=== PATIENT | female | born 1960 | race Asian ===

== ENCOUNTER 2018-06-27 16:47 | Emergency (ER) | payer BC ==
[2018-06-27 17:30] LABS: Urine Blood 1+ (NEG); Urine Glucose NEGATIVE (NEG); Urine Protein NEGATIVE (NEG); Urine pH 5.5 (5.0-7.0)
[2018-06-27 17:38] LABS: Absolute Lymphocytes (CBC) 1.4 K/uL (0.7-4.9); Absolute Monocytes 0.4 K/uL (0.1-1.3); Absolute Neutrophil 7.3 K/uL (1.8-8.0); Basophils % 0.5 % (0-1.3); Eosinophils % 0.7 % (0-4.4); Hematocrit 43.1 % (36.0-45.0); Lymphocytes % 15.4 % (15.3-44.8); MPV 8.4 fL (7.6-11.3); Monocytes % 4.5 % (3.3-12.3); RBC Red Blood Cell Count 5.09 M/uL (3.86-4.86)
[2018-06-27] MEDS ORDERED: Levofloxacin500mg IV 500 MG/100 ML BAG IV ONE (17:59)
[2018-06-27] MEDS ORDERED: NA CHLORIDE 0.9% 1,000 ML ONE ×2 (17:59→18:41)
[2018-06-27] MEDS ORDERED: MORPHINE 4 MG/ML SYR ONE (17:59)
[2018-06-27] MEDS ORDERED: ONDANSETRON 4 MG/2 ML VIAL ONE (17:59)
[2018-06-27] MEDS ORDERED: KETOROLAC 30 MG/ML INJ ONE (17:59)
--- NOTE | 2018-06-27 18:14 | RAD REPORT ---
EXAM DESCRIPTION: CT - Stone Protocol - 06/27/2018 5:59 pm CLINICAL HISTORY: Flank pain. ABD PAIN COMPARISON: No comparisons TECHNIQUE: Axial images were obtained without oral or IV contrast. Lack of contrast limits solid org an and vascular assessment. The [id number] spans the entirety of the system partially obscuring uppermost abdomen and lung bases. Coronal reformatted images were obtained and reviewed. All CT scans are performed using dose optimization technique as appropriate and may include automated exposure control or mA/KV adjustment according to patient size. FINDINGS: Linear subsegmental atelectasis is present both lung bases. Imaged portions of the liver and spleen show no suspicious findings on non-contrast imaging.Cholelith iasis. The pancreas and adrenal glands are normal. No pathologic lymphadenopathy in the abdomen or pe lvis. 3 mm left UVJ stone is present with mild left hydronephrosis. Additional bilateral nephrolithiasis is present. The largest stone on the right is in the inferior pole measuring 5 mm. The largest stone on the left is in the midpole measuring 4 mm. No bowel obstruction, free air, free fluid or abscess. The appendix is not identified as a discrete s tructure, however, no secondary findings of appendicitis are identified. No significant bony abnormality. IMPRESSION: 3 mm left UVJ stone is present with mild left hydronephrosis. Additional bilateral nephrolithiasis. Cholelithiasis.
[2018-06-27 18:19] LABS: Potassium 3.8 mmol/L (3.5-5.1)
[2018-06-27 18:22] LABS: Albumin 3.9 g/dL (3.4-5.0)
--- NOTE | 2018-06-27 18:23 | ER ---
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 Transition of care: patient was not received from another setting of care. Onset of symptoms was June 27, 2018. Risk Assessment: Do you want to hurt yourself or someone else? Patient reports no desire to harm self or others. Initial Sepsis Screen: Does the patient meet any 2 criteria? No. Patient's initial sepsis screen is negative. Does the patient have a suspected source of infection? Yes: Dysuria/Frequency/Urgency/UTI. Care prior to arrival: None. 16:51 Method Of Arrival: Ambulatory 16:51 Acuity: BARNEY 3 hj Triage Assessment: 16:54 General: Appears in no apparent distress. uncomfortable, Behavior is calm, cooperative, hj appropriate for age. Pain: Complains of pain in abdomen Pain currently is 7 out of 10 on a pain scale. GI: Reports lower abdominal pain, upper abdominal pain, nausea. Historical: - Allergies: 16:54 PENICILLINS; hj - Home Meds: 16:54 metoprolol tartrate 50 mg Oral tab 1 tab once daily [Active]; lisinopril 20 mg Oral tab hj 1 tab once daily [Active]; - PMHx: 16:54 Hypertension; hj - PSHx: 16:54 tubal surgery; hj - Immunization history:: Adult Immunizations up to date. - Social history:: Smoking status: Patient/guardian denies using tobacco, Patient/guardian denies using alcohol. - Ebola Screening: : Patient negative for fever greater than or equal to 101.5 degrees Fahrenheit, and additional compatible Ebola Virus Disease symptoms Patient denies exposure to infectious person Patient denies travel to an Ebola-affected area in the 21 days before illness onset. - Family history:: not pertinent. Screenin:54 Abuse screen: Denies threats or abuse. Denies injuries from another. Nutritional hj screening: No deficits noted. Tuberculosis screening: No symptoms or risk factors identified. Fall Risk None identified. Assessment: 16:54 GI: Bowel sounds present X 4 quads. hj 18:41 Reassessment: Patient appears in no apparent distress at this time. Patient and/or ed1 family updated on plan of care and expected duration. Pain level reassessed. Patient is alert, oriented x 3, equal unlabored respirations, skin warm/dry/pink. Patient states feeling better. Patient states symptoms have improved. 21:03 Reassessment: Patient appears in no apparent distress at this time. Patient and/or ed1 family updated on plan of care and expected duration. Pain level reassessed. Patient is alert, oriented x 3, equal unlabored respirations, skin warm/dry/pink. Patient states feeling better. Patient states symptoms have improved. Vital Signs: 16:55 BP 151 / 89; Pulse 94; Resp 18; Temp 98.1(TE); Pulse Ox 98% on R/A; Weight 69.4 kg; hj Height 5 ft. 2 in. (157.48 cm); Pain 7/10; 18:41 BP 148 / 76; Pulse 83; Resp 16; Pulse Ox 100% on R/A; Pain 4/10; ed1 21:03 BP 137 / 73; Pulse 71; Resp 17; Temp 98.1(O); Pulse Ox 100% on R/A; Pain 4/10; ed1 16:55 Body Mass Index 27.98 (69.40 kg, 157.48 cm) ED Course: 16:51 Patient arrived in ED. hj 16:52 Triage completed. hj 16:54 Arm band placed on right wrist. hj 16:55 Patient has correct armband on for positive identification. Placed in gown. Bed in low hj position. Call light in reach. Side rails up X 1. 17:01 Nighat Vega LVN is Primary Nurse. ed1 17:01 Casey Ramsey MD is Attending Physician. [facility] 17:36 Missed attempt(s): 22 gauge in right antecubital area. Bleeding controlled, band aid ed1 applied, catheter tip intact. 17:58 Initial lab(s) drawn, by me, sent to lab. Inserted saline lock: 24 gauge in right iw wrist, using aseptic technique. Blood collected. 17:59 CT Stone Protocol In Process Unspecified. EDMS 18:22 Niyah Smith MD is Referral Physician. [facility] 18:41 Resting quietly. Awaiting: completion of IV fluids and antibiotics. ed1 18:41 No provider procedures requiring assistance completed. ed1 21:03 IV discontinued, intact, bleeding controlled, No redness/swelling at site. Pressure ed1 dressing applied. Administered Medications: 18:06 Drug: TORadol 30 mg Route: IVP; Site: right wrist; iw 18:38 Follow up: Response: No adverse reaction; Pain is decreased ed1 18:07 Drug: morphine 2 mg Route: IVP; Site: right wrist; iw 18:38 Follow up: Response: No adverse reaction; Pain is decreased ed1 18:07 Drug: Zofran 4 mg Route: IVP; Site: right wrist; iw 18:38 Follow up: Response: No adverse reaction ed1 18:13 Drug: NS 0.9% 1000 ml Route: IV; Rate: 1 bolus; Site: right wrist; ed1 20:41 Follow up: IV Status: Completed infusion; IV Intake: 1000ml ed1 18:13 Drug: levofloxacin 500 mg Volume: 100 ml; Route: IVPB; Infused Over: 60 mins; Site: ed1 right wrist; 20:41 Follow up: Response: No adverse reaction; IV Status: Completed infusion ed1 18:37 Drug: Flomax 0.4 mg Route: PO; ed1 20:41 Follow up: Response: No adverse reaction ed1 18:37 Drug: NS 0.9% 1000 ml Route: IV; Rate: 1 bolus; Site: right wrist; ed1 21:03 Follow up: IV Status: Completed infusion; IV Intake: 1000ml ed1 21:03 Drug: morphine 2 mg Route: IVP; Site: right wrist; ed1 21:03 Follow up: Response: No adverse reaction; Medication administered at discharge. ed1 Intake: 20:41 IV: 1000ml; Total: 1000ml. ed1 21:03 IV: 1000ml; Total: 2000ml. ed1 Outcome: 18:22 Discharge ordered by . luis 21:03 Discharged to home ambulatory, with significant other. ed1 21:03 Condition: good 21:03 Discharge instructions given to patient, significant other, Instructed on discharge instructions, follow up and referral plans. medication usage, Demonstrated understanding of instructions, follow-up care, medications, Prescriptions given X 4. 21:05 Patient left the ED. 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
--- NOTE | 2018-06-27 18:23 | EDPHYS ---
Physician Documentation [facility] Name: Mayra Austin Age: 58 yrs Sex: Female : 1960 Arrival Date: 06/27/2018 Time: 16:51 Bed 23 Private MD: LEOLA Physician Casey Ramsey HPI: 06/27 17:23 This 58 yrs old Female presents to ER via Ambulatory with complaints of Possible luis Kidney Stone. 17:23 The patient presents with abdominal pain in the left lower quadrant. Onset: The luis symptoms/episode began/occurred 1 day(s) ago. The patient complains of pain in the left low back and left mid back. The pain radiates to the left low back and left mid back. Onset: The symptoms/episode began/occurred 1 day(s) ago. Modifying factors: The symptoms are alleviated by nothing. the symptoms are aggravated by nothing. Associated signs and symptoms: The patient has no apparent associated signs or symptoms. Modifying factors: The symptoms are alleviated by nothing, the symptoms are aggravated by nothing. Historical: - Allergies: 16:54 PENICILLINS; hj - Home Meds: 16:54 metoprolol tartrate 50 mg Oral tab 1 tab once daily [Active]; lisinopril 20 mg Oral tab hj 1 tab once daily [Active]; - PMHx: 16:54 Hypertension; hj - PSHx: 16:54 tubal surgery; hj - Immunization history:: Adult Immunizations up to date. - Social history:: Smoking status: Patient/guardian denies using tobacco, Patient/guardian denies using alcohol. - Ebola Screening: : Patient negative for fever greater than or equal to 101.5 degrees Fahrenheit, and additional compatible Ebola Virus Disease symptoms Patient denies exposure to infectious person Patient denies travel to an Ebola-affected area in the 21 days before illness onset. - Family history:: not pertinent. ROS: 17:23 Constitutional: Negative for fever, chills, and weight loss, Eyes: Negative for injury, luis pain, redness, and discharge, ENT: Negative for injury, pain, and discharge, Neck: Negative for injury, pain, and swelling, Cardiovascular: Negative for chest pain, palpitations, and edema, Respiratory: Negative for shortness of breath, cough, wheezing, and pleuritic chest pain, Abdomen/GI: Negative for abdominal pain, nausea, vomiting, diarrhea, and constipation, : Negative for injury, bleeding, discharge, and swelling, MS/Extremity: Negative for injury and deformity, Skin: Negative for injury, rash, and discoloration, Neuro: Negative for headache, weakness, numbness, tingling, and seizure, Psych: Negative for depression, anxiety, suicide ideation, homicidal ideation, and hallucinations, Allergy/Immunology: Negative for hives, rash, and allergies, Endocrine: Negative for neck swelling, polydipsia, polyuria, polyphagia, and marked weight changes, Hematologic/Lymphatic: Negative for swollen nodes, abnormal bleeding, and unusual bruising. 17:23 Back: Positive for flank pain, on the left. Exam: 17:23 Constitutional: This is a well developed, well nourished patient who is awake, alert, luis and in no acute distress. Head/Face: Normocephalic, atraumatic. Eyes: Pupils equal round and reactive to light, extra-ocular motions intact. Lids and lashes normal. Conjunctiva and sclera are non-icteric and not injected. Cornea within normal limits. Periorbital areas with no swelling, redness, or edema. ENT: Nares patent. No nasal discharge, no septal abnormalities noted. Tympanic membranes are normal and external auditory canals are clear. Oropharynx with no redness, swelling, or masses, exudates, or evidence of obstruction, uvula midline. Mucous membranes moist. Neck: Trachea midline, no thyromegaly or masses palpated, and no cervical lymphadenopathy. Supple, full range of motion without nuchal rigidity, or vertebral point tenderness. No Meningismus. Chest/axilla: Normal chest wall appearance and motion. Nontender with no deformity. No lesions are appreciated. Cardiovascular: Regular rate and rhythm with a normal S1 and S2. No gallops, murmurs, or rubs. Normal PMI, no JVD. No pulse deficits. Respiratory: Lungs have equal breath sounds bilaterally, clear to auscultation and percussion. No rales, rhonchi or wheezes noted. No increased work of breathing, no retractions or nasal flaring. Female : Normal external genitalia. Skin: Warm, dry with normal turgor. Normal color with no rashes, no lesions, and no evidence of cellulitis. MS/ Extremity: Pulses equal, no cyanosis. Neurovascular intact. Full, normal range of motion. Neuro: Awake and alert, GCS 15, oriented to person, place, time, and situation. Cranial nerves II-XII grossly intact. Motor strength 5/5 in all extremities. Sensory grossly intact. Cerebellar exam normal. Normal gait. Psych: Awake, alert, with orientation to person, place and time. Behavior, mood, and affect are within normal limits. 17:23 Abdomen/GI: Inspection: abdomen appears normal, Bowel sounds: normal, Palpation: mild abdominal tenderness, moderate abdominal tenderness, in the left lower quadrant, Liver: no appreciated palpable abnormalities, Hernia: not appreciated. Vital Signs: 16:55 BP 151 / 89; Pulse 94; Resp 18; Temp 98.1(TE); Pulse Ox 98% on R/A; Weight 69.4 kg; hj Height 5 ft. 2 in. (157.48 cm); Pain 7/10; 18:41 BP 148 / 76; Pulse 83; Resp 16; Pulse Ox 100% on R/A; Pain 4/10; ed1 21:03 BP 137 / 73; Pulse 71; Resp 17; Temp 98.1(O); Pulse Ox 100% on R/A; Pain 4/10; ed1 16:55 Body Mass Index 27.98 (69.40 kg, 157.48 cm) MDM: 17:02 Patient medically screened. [facility] 17:25 Data reviewed: vital signs, nurses notes, lab test result(s), radiologic studies, CT luis scan. 06/27 17:19 Order name: Urine Dipstick--Ancillary (enter results); Complete Time: 17:56 06/27 17:23 Order name: Basic Metabolic Panel [facility] 06/27 17:23 Order name: CBC with Diff; Complete Time: 17:56 [facility] 06/27 17:23 Order name: Creatinine for Radiology [facility] 06/27 17:23 Order name: Hepatic Function [facility] 06/27 17:23 Order name: Lipase [facility] 06/27 17:23 Order name: CT Stone Protocol; Complete Time: 18:21 [facility] 06/27 17:23 Order name: IV Saline Lock; Complete Time: 18:01 [facility] 06/27 17:23 Order name: Labs collected and sent; Complete Time: 17:30 [facility] Administered Medications: 18:06 Drug: TORadol 30 mg Route: IVP; Site: right wrist; iw 18:38 Follow up: Response: No adverse reaction; Pain is decreased ed1 18:07 Drug: morphine 2 mg Route: IVP; Site: right wrist; iw 18:38 Follow up: Response: No adverse reaction; Pain is decreased ed1 18:07 Drug: Zofran 4 mg Route: IVP; Site: right wrist; iw 18:38 Follow up: Response: No adverse reaction ed1 18:13 Drug: NS 0.9% 1000 ml Route: IV; Rate: 1 bolus; Site: right wrist; ed1 20:41 Follow up: IV Status: Completed infusion; IV Intake: 1000ml ed1 18:13 Drug: levofloxacin 500 mg Volume: 100 ml; Route: IVPB; Infused Over: 60 mins; Site: ed1 right wrist; 20:41 Follow up: Response: No adverse reaction; IV Status: Completed infusion ed1 18:37 Drug: Flomax 0.4 mg Route: PO; ed1 20:41 Follow up: Response: No adverse reaction ed1 18:37 Drug: NS 0.9% 1000 ml Route: IV; Rate: 1 bolus; Site: right wrist; ed1 21:03 Follow up: IV Status: Completed infusion; IV Intake: 1000ml ed1 21:03 Drug: morphine 2 mg Route: IVP; Site: right wrist; ed1 21:03 Follow up: Response: No adverse reaction; Medication administered at discharge. ed1 Disposition: 06/27/18 18:22 Discharged to Home. Impression: Hydronephrosis with renal and ureteral calculous obstruction - 3 mm uvj, left. - Condition is Stable. - Discharge Instructions: Kidney Stones, Kidney Stones, [id number], Hydronephrosis, Dietary Guidelines to Help Prevent Kidney Stones. - Prescriptions for Tylenol- Codeine #3 300-30 mg Oral Tablet - take 2 tablet by ORAL route every 6 hours As needed; 30 tablet. Zofran 4 mg Oral Tablet - take 1 tablet by ORAL route every 12 hours As needed; 20 tablet. Flomax 0.4 mg Oral Capsule, Sust. Release 24 hr - take 1 capsule by ORAL route once daily 1/2 hour following the same meal each day; 30 capsule. Cipro 500 mg Oral Tablet - take 1 tablet by ORAL route every 12 hours for 7 days; 14 tablet. - Medication Reconciliation Form, Thank You Letter, Antibiotic Education, Prescription Opioid Use form. - Follow up: Private Physician; When: 2 - 3 days; Reason: Recheck today's complaints, Continuance of care, Re-evaluation by your physician. Follow up: Niyah Smith; When: 2 - 3 days; Reason: Recheck today's complaints, Continuance of care, Re-evaluation by your physician. - Problem is new. - Symptoms have improved. Signatures: Dispatcher [employer] EDKY Casey Ramsey MD MD cha Williams, Irene, RN RN Nighat Vega LVN TOP CUTTER ed1 Bryant Wesley RN RN Corrections: (The following items were deleted from the chart) 21:05 18:22 06/27/2018 18:22 Discharged to Home. Impression: Hydronephrosis with renal and ed1 ureteral calculous obstruction - 3 mm uvj, left. Condition is Stable. Discharge Instructions: Kidney Stones, Kidney Stones, [id number], Hydronephrosis, Dietary Guidelines to Help Prevent Kidney Stones. Prescriptions for Tylenol-Codeine #3 300-30 mg Oral Tablet - take 2 tablet by ORAL route every 6 hours As needed; 30 tablet, Zofran 4 mg Oral Tablet - take 1 tablet by ORAL route every 12 hours As needed; 20 tablet, Flomax 0.4 mg Oral Capsule, Sust. Release 24 hr - take 1 capsule by ORAL route once daily 1/2 hour following the same meal each day; 30 capsule, Cipro 500 mg Oral Tablet - take 1 tablet by ORAL route every 12 hours for 7 days; 14 tablet. and Forms are Medication Reconciliation Form, Thank You Letter, Antibiotic Education, Prescription Opioid Use. Follow up: Private Physician; When: 2 - 3 days; Reason: Recheck today's complaints, Continuance of care, Re-evaluation by your physician. Follow up: Niyah Smith; When: 2 - 3 days; Reason: Recheck today's complaints, Continuance of care, Re-evaluation by your physician. Problem is new. Symptoms have improved. luis
[2018-06-27 18:24] LABS: Bilirubin Direct 0.2 mg/dL (0-0.2)
[2018-06-27 18:26] LABS: Bilirubin Total 0.5 mg/dL (0.2-1.0); Protein, Total 8.4 g/dL (6.4-8.2)
[2018-06-27] MEDS ORDERED: TAMSULOSIN 0.4 MG SR CAP ONE (18:41)
== END 2018-06-27 21:05 | disposition home or self-care (01) ==
LOC: ER 16:47
DX: N13.2 Hydronephrosis with renal and ureteral calculous obstruction (principal); K80.20 Calculus of gallbladder without cholecystitis without obstruction; I10 Essential (primary) hypertension; Z79.899 Other long term (current) drug therapy
CPT/HCPCS: 36415; 74176; 76377; 80048; 80076; 81003; 83690; 85025; 96365; 96366; 96375; 99284; J2405; J7030

== ENCOUNTER 2018-12-03 00:21 | Emergency (ER) | payer BC ==
[2018-12-03] MEDS ORDERED: ONDANSETRON 4 MG/2 ML VIAL ONE (01:09)
[2018-12-03] MEDS ORDERED: FENTANYL CITR 100 MCG/2 ML ONE ×2 (01:09→01:59)
[2018-12-03] MEDS ORDERED: NA CHLORIDE 0.9% 1,000 ML ONE (01:09)
[2018-12-03 01:21] LABS: Absolute Lymphocytes (CBC) 1.8 K/uL (0.7-4.9); Absolute Monocytes 0.4 K/uL (0.1-1.3); Absolute Neutrophil 6.8 K/uL (1.8-8.0); Basophils % 0.5 % (0-1.3); Eosinophils % 1.6 % (0-4.4); Hematocrit 41.7 % (36.0-45.0); MPV 8.4 fL (7.6-11.3); Monocytes % 3.9 % (3.3-12.3); RBC Red Blood Cell Count 4.98 M/uL (3.86-4.86)
[2018-12-03 01:29] LABS: Albumin 4.1 g/dL (3.4-5.0); Bilirubin Direct 0.1 mg/dL (0-0.2); Bilirubin Total 0.3 mg/dL (0.2-1.0); Potassium 3.9 mmol/L (3.5-5.1); Protein, Total 8.9 g/dL (6.4-8.2)
[2018-12-03] MEDS ORDERED: PROMETHAZINE 25 MG/ML VIAL ONE (03:18)
[2018-12-03] MEDS ORDERED: TAMSULOSIN 0.4 MG SR CAP ONE (03:19)
[2018-12-03] MEDS ORDERED: MORPHINE 4 MG/ML SYR ONE ×2 (03:19→03:51)
--- NOTE | 2018-12-03 03:23 | EDPHYS ---
Physician Documentation [facility] Name: Mayra Austin Age: 58 yrs Sex: Female : 1960 Arrival Date: 12/03/2018 Time: 00:24 Bed 18 Private MD: Edwin Dias H ED Physician Charly Kelley HPI: 12/03 01:14 This 58 yrs old Female presents to ER via Ambulatory with complaints of Flank snw Pain, Pelvic Pain. 01:14 The patient complains of pain in the right mid back. The pain radiates to the right snw lower quadrant. Onset: The symptoms/episode began/occurred suddenly, just prior to arrival. Associated signs and symptoms: Pertinent positives: nausea, vomiting. Severity of pain: At its worst the pain was moderate severe in the emergency department the pain is unchanged. The patient has experienced similar episodes in the past, several times. It is unknown whether or not the patient has recently seen a physician. hx of kidney stones. Historical: - Allergies: 00:34 PENICILLINS; bb - Home Meds: 00:34 lisinopril 20 mg Oral tab 1 tab once daily [Active]; metoprolol tartrate 50 mg Oral tab bb 1 tab once daily [Active]; - PMHx: 00:34 Hypertension; bb - PSHx: 00:34 tubal surgery; bb - Immunization history:: Adult Immunizations up to date. - Social history:: Smoking status: Patient/guardian denies using tobacco. - Ebola Screening: : No symptoms or risks identified at this time. ROS: 01:11 Constitutional: Negative for fever, chills, and weight loss, Eyes: Negative for injury, snw pain, redness, and discharge, ENT: Negative for injury, pain, and discharge, Neck: Negative for injury, pain, and swelling, Cardiovascular: Negative for chest pain, palpitations, and edema, Respiratory: Negative for shortness of breath, cough, wheezing, and pleuritic chest pain, Abdomen/GI: Positive for abdominal pain, nausea, vomiting, diarrhea, and negative for constipation Back: Negative for injury, + right flank pain : Negative for injury, bleeding, discharge, and swelling, MS/Extremity: Negative for injury and deformity, Skin: Negative for injury, rash, and discoloration, Neuro: Negative for headache, weakness, numbness, tingling, and seizure. Exam: 01:11 Constitutional: This is a well developed, well nourished patient who is awake, alert, snw and in no acute distress. Head/Face: Normocephalic, atraumatic. Eyes: Pupils equal round and reactive to light, extra-ocular motions intact. Lids and lashes normal. Conjunctiva and sclera are non-icteric and not injected. Cornea within normal limits. Periorbital areas with no swelling, redness, or edema. ENT: Nares patent. No nasal discharge, no septal abnormalities noted. Tympanic membranes are normal and external auditory canals are clear. Oropharynx with no redness, swelling, or masses, exudates, or evidence of obstruction, uvula midline. Mucous membranes moist. Neck: Trachea midline, no thyromegaly or masses palpated, and no cervical lymphadenopathy. Supple, full range of motion without nuchal rigidity, or vertebral point tenderness. No Meningismus. Chest/axilla: Normal chest wall appearance and motion. Nontender with no deformity. No lesions are appreciated. Cardiovascular: Regular rate and rhythm with a normal S1 and S2. No gallops, murmurs, or rubs. Normal PMI, no JVD. No pulse deficits. Respiratory: Lungs have equal breath sounds bilaterally, clear to auscultation and percussion. No rales, rhonchi or wheezes noted. No increased work of breathing, no retractions or nasal flaring. 01:11 Back: No spinal tenderness. No costovertebral tenderness. Full range of motion. Skin: Warm, dry with normal turgor. Normal color with no rashes, no lesions, and no evidence of cellulitis. MS/ Extremity: Pulses equal, no cyanosis. Neurovascular intact. Full, normal range of motion. Neuro: Awake and alert, GCS 15, oriented to person, place, time, and situation. Cranial nerves II-XII grossly intact. Motor strength 5/5 in all extremities. Sensory grossly intact. Cerebellar exam normal. Normal gait. Psych: Awake, alert, with orientation to person, place and time. Behavior, mood, and affect are within normal limits. 01:11 Abdomen/GI: Inspection: abdomen appears normal, Bowel sounds: normal, in all quadrants, Palpation: soft, moderate abdominal tenderness, in the right lower quadrant. Vital Signs: 00:34 BP 171 / 94; Pulse 109; Resp 18 S; Temp 96.1(TE); Pulse Ox 96% on R/A; Weight 72.57 kg; bb Height 5 ft. 3 in. (160.02 cm) (R); Pain 9/10; 01:30 BP 151 / 86; Pulse 90; Resp 17; Temp 97; Pulse Ox 99% on R/A; Pain 8/10; rr5 01:59 BP 158 / 86; Pulse 88; Resp 19; Temp 98.4(O); Pulse Ox 100% on 2 lpm NC; Pain 8/10; rr5 03:00 BP 162 / 86; Pulse 85; Resp 17; Temp 98.3; Pulse Ox 99% ; Pain 8/10; rr5 04:00 BP 149 / 80; Pulse 80; Resp 17; Temp 98.4; Pulse Ox 99% on R/A; Pain 0/10; rr5 04:39 BP 133 / 75; Pulse 89; Resp 17; Pulse Ox 100% ; Pain 0/10; rr5 00:34 Body Mass Index 28.34 (72.57 kg, 160.02 cm) bb MDM: 00:47 Patient medically screened. snw 03:27 Data reviewed: vital signs, nurses notes. Data interpreted: Pulse oximetry: on room air snw is 99 %. Interpretation: normal. Counseling: I had a detailed discussion with the patient and/or guardian regarding: the historical points, exam findings, and any diagnostic results supporting the discharge/admit diagnosis, the presence of at least one elevated blood pressure reading (>120/80) during this emergency department visit, lab results, radiology results, the need for outpatient follow up, for definitive care, to return to the emergency department if symptoms worsen or persist or if there are any questions or concerns that arise at home. Special discussion: I have referred the patient to see his PCP for further evaluation of high blood pressure. Based on the history and exam findings, there is no indication for further emergent testing or inpatient evaluation. I discussed with the patient/guardian the need to see the primary care provider for further evaluation of the symptoms. I discussed with the patient/guardian the need to see the urologist for further evaluation of the symptoms. 12/03 00:40 Order name: Basic Metabolic Panel snw 12/03 00:40 Order name: CBC with Diff; Complete Time: 01:33 snw 12/03 00:40 Order name: Creatinine for Radiology; Complete Time: 01:33 w 12/03 00:40 Order name: Hepatic Function; Complete Time: 01:33 snw 12/03 00:40 Order name: Lipase; Complete Time: 01:33 snw 12/03 00:41 Order name: Basic Metabolic Panel; Complete Time: 01:33 EDMS 12/03 00:40 Order name: CT Stone Protocol w 12/03 00:40 Order name: IV Saline Lock; Complete Time: 01:38 snw 12/03 00:40 Order name: Labs collected and sent; Complete Time: 01:38 snw 12/03 01:52 Order name: Urine Dipstick-Ancillary (obtain specimen); Complete Time: 02:05 snw 12/03 02:56 Order name: Misc. Order: bolus remainder of IVF; Complete Time: 04:06 snw Administered Medications: 01:05 Drug: NS 0.9% 1000 ml Route: IV; Rate: 125 ml/hr; Site: right forearm; rr5 04:05 Follow up: Response: No adverse reaction; IV Status: Completed infusion; IV Intake: rr5 1000ml 01:06 Drug: Zofran 4 mg Route: IVP; Site: right forearm; rr5 02:06 Follow up: Response: No adverse reaction rr5 01:08 Drug: fentaNYL (PF) 25 mcg Route: IVP; Site: right forearm; rr5 02:05 Follow up: Response: No adverse reaction rr5 01:48 Drug: fentaNYL (PF) 50 mcg Route: IVP; Site: right forearm; rr5 02:50 Follow up: Response: No adverse reaction; Pain is unchanged, physician notified rr5 03:00 Drug: Flomax 0.4 mg Route: PO; rr5 04:02 Follow up: Response: No adverse reaction rr5 04:02 Follow up: Response: No adverse reaction rr5 03:02 Drug: morphine 4 mg Route: IVP; Site: right forearm; rr5 04:00 Follow up: Response: No adverse reaction rr5 03:05 Drug: Phenergan 6.25 mg Route: IVP; Site: right forearm; rr5 04:02 Follow up: Response: No adverse reaction rr5 03:40 Drug: morphine 4 mg Route: IVP; Site: right forearm; rr5 04:42 Follow up: Response: No adverse reaction rr5 Disposition: 12/03/18 03:22 Discharged to Home. Impression: Hydronephrosis with ureteral stricture, not elsewhere classified. - Condition is Stable. - Discharge Instructions: Kidney Stones, Hydronephrosis, Dietary Guidelines to Help Prevent Kidney Stones, Rehydration, Adult. - Prescriptions for Tylenol- Codeine #3 300-30 mg Oral Tablet - take 2 tablets by ORAL route every 6 hours As needed; 16 tablet. Flomax 0.4 mg Oral Capsule, Sust. Release 24 hr - take 1 capsule by ORAL route once daily 1/2 hour following the same meal each day; 30 capsule. - Medication Reconciliation Form, Thank You Letter, Antibiotic Education, Prescription Opioid Use form. - Follow up: Edwin Dias; When: 1 - 2 days; Reason: Recheck today's complaints, Continuance of care, Re-evaluation by your physician. Follow up: Emergency Department; When: As needed; Reason: Worsening of condition. Follow up: Niyah Smith; When: 1 week; Reason: Recheck today's complaints, Continuance of care. Addendum: 12/05/2018 07:40 Co-signature as Attending Physician, Charly Kelley MD. g s Signatures: Dispatcher [employer] EDMO Meghann Caal, SNOWBOARD DESIGNER-C SNOWBOARD DESIGNER-Csnw Rayne Ac RN RN Charly Wheeler MD MD gs Roque, Raymond, RN RN rr5 Corrections: (The following items were deleted from the chart) 12/03 02:17 01:53 Urine Culture+BA.LAB.BRZ ordered. EDMS EDMS 02:17 01:53 UA MICROSCOPIC+U.LAB.BRZ ordered. EDMS EDMS 04:57 03:22 12/03/2018 03:22 Discharged to Home. Impression: Hydronephrosis with ureteral rr5 stricture, not elsewhere classified. Condition is Stable. Discharge Instructions: Kidney Stones, Hydronephrosis, Dietary Guidelines to Help Prevent Kidney Stones, Rehydration, Adult. Prescriptions for Tylenol-Codeine #3 300-30 mg Oral Tablet - take 2 tablets by ORAL route every 6 hours As needed; 16 tablet, Flomax 0.4 mg Oral Capsule, Sust. Release 24 hr - take 1 capsule by ORAL route once daily 1/2 hour following the same meal each day; 30 capsule. and Forms are Medication Reconciliation Form, Thank You Letter, Antibiotic Education, Prescription Opioid Use. Follow up: Edwin Dias; When: 1 - 2 days; Reason: Recheck today's complaints, Continuance of care, Re-evaluation by your physician. Follow up: Emergency Department; When: As needed; Reason: Worsening of condition. Follow up: Niyah Smith; When: 1 week; Reason: Recheck today's complaints, Continuance of care. snw
--- NOTE | 2018-12-03 03:23 | ER ---
Nurse's Notes [facility] Name: Mayra Austin Age: 58 yrs Sex: Female : 1960 Arrival Date: 12/03/2018 Time: 00:24 Bed 18 Private MD: Edwin Dias H Diagnosis: Hydronephrosis with ureteral stricture, not elsewhere classified Presentation: 12/03 00:32 Presenting complaint: Patient states: she is having severe right sided pain for the bb last few orders the pain is constant pt is vomiting during triage, pt has past history of kidney stones. Transition of care: patient was not received from another setting of care. Onset of symptoms was December 03, 2018. Risk Assessment: Do you want to hurt yourself or someone else? Patient reports no desire to harm self or others. Initial Sepsis Screen: Does the patient meet any 2 criteria? No. Patient's initial sepsis screen is negative. Does the patient have a suspected source of infection? No. Patient's initial sepsis screen is negative. Care prior to arrival: None. 00:32 Method Of Arrival: Ambulatory bb 00:32 Acuity: BARNEY 3 bb Historical: - Allergies: 00:34 PENICILLINS; bb - Home Meds: 00:34 lisinopril 20 mg Oral tab 1 tab once daily [Active]; metoprolol tartrate 50 mg Oral tab bb 1 tab once daily [Active]; - PMHx: 00:34 Hypertension; bb - PSHx: 00:34 tubal surgery; bb - Immunization history:: Adult Immunizations up to date. - Social history:: Smoking status: Patient/guardian denies using tobacco. - Ebola Screening: : No symptoms or risks identified at this time. Screenin:00 Abuse screen: Denies threats or abuse. Denies injuries from another. Nutritional rr5 screening: No deficits noted. Tuberculosis screening: No symptoms or risk factors identified. Fall Risk IV access (20 points). Total Marcus Fall Scale indicates No Risk (0-24 pts). Assessment: 00:35 General: Appears in no apparent distress. uncomfortable, Behavior is calm, cooperative, rr5 appropriate for age. 00:35 Pain: Complains of pain in right flank Pain radiates to pelvis Pain currently is 9 out rr5 of 10 on a pain scale. Quality of pain is described as aching, Pain began gradually, Is intermittent. Neuro: Level of Consciousness is awake, alert, obeys commands, Oriented to person, place, time, situation, Appropriate for age. Cardiovascular: Capillary refill < 3 seconds Patient's skin is warm and dry. Respiratory: Airway is patent Respiratory effort is even, unlabored, Respiratory pattern is regular, symmetrical. GI: Reports nausea, vomiting. : Urine is clear, Reports pain in right flank(s). EENT: No signs and/or symptoms were reported regarding the EENT system. Derm: Skin is intact, Skin temperature is warm. Musculoskeletal: Capillary refill < 3 seconds, Range of motion:. 01:35 Reassessment: Patient appears in no apparent distress at this time. Patient is alert, rr5 oriented x 3, equal unlabored respirations, skin warm/dry/pink. patient still complaining of right flank pain. pain score of 8/10. ED provider aware with order made and carried out. 02:20 Reassessment: Patient appears in no apparent distress at this time. awaiting for CT rr5 result. 02:50 Reassessment: Patient appears in no apparent distress at this time. still complaining rr5 of flank pain. pain score of 8/10. reassess by ED provider with order made and carried out. 03:40 Reassessment: Patient appears in no apparent distress at this time. not relieved from rr5 pain. pain score of 8/10. ED provider aware with order made and carried out. 04:15 Reassessment: Patient appears in no apparent distress at this time. asleep on bed rr5 comfortably Patient states feeling better. Patient states symptoms have improved. 04:38 Reassessment: Patient appears in no apparent distress at this time. Patient is alert, rr5 oriented x 3, equal unlabored respirations, skin warm/dry/pink. discharge instruction given and explained without complaints made. Patient denies pain at this time. Patient states feeling better. Patient states symptoms have improved. Vital Signs: 00:34 BP 171 / 94; Pulse 109; Resp 18 S; Temp 96.1(TE); Pulse Ox 96% on R/A; Weight 72.57 kg; bb Height 5 ft. 3 in. (160.02 cm) (R); Pain 9/10; 01:30 BP 151 / 86; Pulse 90; Resp 17; Temp 97; Pulse Ox 99% on R/A; Pain 8/10; rr5 01:59 BP 158 / 86; Pulse 88; Resp 19; Temp 98.4(O); Pulse Ox 100% on 2 lpm NC; Pain 8/10; rr5 03:00 BP 162 / 86; Pulse 85; Resp 17; Temp 98.3; Pulse Ox 99% ; Pain 8/10; rr5 04:00 BP 149 / 80; Pulse 80; Resp 17; Temp 98.4; Pulse Ox 99% on R/A; Pain 0/10; rr5 04:39 BP 133 / 75; Pulse 89; Resp 17; Pulse Ox 100% ; Pain 0/10; rr5 00:34 Body Mass Index 28.34 (72.57 kg, 160.02 cm) bb ED Course: 00:24 Patient arrived in ED. am2 00:25 Edwin Dias DO is Private Physician. am2 00:34 Triage completed. bb 00:34 Arm band placed on Patient placed in an exam room, on a stretcher, on pulse oximetry. bb Family accompanied patient. 00:35 Inserted saline lock: 20 gauge in right forearm, using aseptic technique. Blood rr5 collected. 00:36 Arnoldo Burch RN is Primary Nurse. rr5 00:39 Meghann Caal FNP-C is [facility]. snw 00:39 Charly Kelley MD is Attending Physician. snw 00:40 Patient has correct armband on for positive identification. Bed in low position. Call rr5 light in reach. Side rails up X2. Adult w/ patient. Pulse ox on. NIBP on. Door closed. Lights dimmed. Warm blanket given. 01:21 CT completed. Patient tolerated procedure well. Patient moved to CT via stretcher. Patient moved back from CT. 01:31 CT Stone Protocol In Process Unspecified. EDMS 03:22 Edwin Dias DO is Referral Physician. snw 03:22 Niyah Smith MD is Referral Physician. snw Administered Medications: 01:05 Drug: NS 0.9% 1000 ml Route: IV; Rate: 125 ml/hr; Site: right forearm; rr5 04:05 Follow up: Response: No adverse reaction; IV Status: Completed infusion; IV Intake: rr5 1000ml 01:06 Drug: Zofran 4 mg Route: IVP; Site: right forearm; rr5 02:06 Follow up: Response: No adverse reaction rr5 01:08 Drug: fentaNYL (PF) 25 mcg Route: IVP; Site: right forearm; rr5 02:05 Follow up: Response: No adverse reaction rr5 01:48 Drug: fentaNYL (PF) 50 mcg Route: IVP; Site: right forearm; rr5 02:50 Follow up: Response: No adverse reaction; Pain is unchanged, physician notified rr5 03:00 Drug: Flomax 0.4 mg Route: PO; rr5 04:02 Follow up: Response: No adverse reaction rr5 04:02 Follow up: Response: No adverse reaction rr5 03:02 Drug: morphine 4 mg Route: IVP; Site: right forearm; rr5 04:00 Follow up: Response: No adverse reaction rr5 03:05 Drug: Phenergan 6.25 mg Route: IVP; Site: right forearm; rr5 04:02 Follow up: Response: No adverse reaction rr5 03:40 Drug: morphine 4 mg Route: IVP; Site: right forearm; rr5 04:42 Follow up: Response: No adverse reaction rr5 Intake: 04:05 IV: 1000ml; Total: 1000ml. rr5 Outcome: 03:22 Discharge ordered by . kimberley 04:57 Patient left the ED. rr5 Signatures: Dispatcher [employer] EDMS Meghann Caal FNP-C OUTPATIENT SERVICES DIRECTOR-Evan Irving Brenda RN RN Lorraine Barnhart Raymond, RN RN rr5 Corrections: (The following items were deleted from the chart) 00:36 00:34 Pulse 109bpm; Resp 18bpm; Spontaneous; Pulse Ox 96% RA; Temp 96.1F Temporal; bb 72.57 kg Reported; Height 5 ft. 3 in. Reported; BMI: 28.3; Pain 9/10; bb
--- NOTE | 2018-12-03 09:14 | RAD REPORT ---
EXAM DESCRIPTION: CT - Stone Protocol - 12/03/2018 2:53 am CLINICAL HISTORY: Abdominal and flank pain. COMPARISON: CT abdomen and pelvis without contrast 06/27/2018. TECHNIQUE: Axial unenhanced [address] imaging of the abdomen and pelvis performed. Reformatted coronal and sagittal images reviewed. A dose reduction technique was utilized with automated exposure control according to patient size. FINDINGS: LOWER THORAX: Minimal scattered bilateral lower lobe, right middle lobe and lingula atele ctasis. Cardiac size is mildly enlarged. ABDOMEN: LIVER/GALLBLADDER: Normal liver. Partially calcified stone within the gallbladder. No evidence of ch olecystitis or biliary dilatation. SPLEEN/PANCREAS: Normal spleen. Normal pancreas. KIDNEYS/ADRENAL GLANDS: Normal adrenal glands. There are several small calcified stones within the r ight and left renal pelvis. The largest is within the inferior right renal pelvis, 6 mm. Mild right r enal pelvic dilatation. AP pelvis: 1.1 cm. Mild right perinephric edema. Asymmetric enlargement of th e right ureter diffusely secondary to an obstructing 4 mm right ureteropelvic junction calculus. RETROPERITONEAL VESSELS/NODES: Normal aorta and inferior vena cava caliber. Mild aortic atherosclero sis. No adenopathy. BOWEL: Small hiatal hernia. Normal remaining stomach. Small bowel loops are of normal caliber. Marielle l appendix in the right lower quadrant. Normal colon. MESENTERY/PERITONEUM: No adenopathy. No ascites or free air. Tiny fat-containing umbilical hernia. PELVIS: BLADDER: Incompletely distention. No wall thickening. GENITAL ORGANS: Normal uterus. Normal ovaries. PERITONEUM: No pelvic free fluid or adenopathy. BONES AND SOFT TISSUES: Normal lumbar alignment. Very mild degenerative endplate changes throughout the lumbar spine. Intact bony pelvis. Normal hips. IMPRESSION: 1. Mild right hydronephrosis and obstructive uropathy secondary to a 4 mm right ureterop elvic junction calculus. 2. Nonobstructing inferior renal pelvic calculi bilaterally. Largest is within the inferior right staci al pelvis, 6 mm. 3. Cholelithiasis without cholecystitis. 4. Small hiatal hernia. Electronically signed by: Lupe Garcia DO 12/03/2018 2:09 AM CDT Due to temporary technical issues with the PACS/Fluency reporting system, reports are being signed by the in house radiologist as a courtesy to ensure prompt reporting. The interpreting radiologist is magdalene rogers responsible for the content of the report.
== END 2018-12-03 04:57 | disposition home or self-care (01) ==
LOC: ER 00:21
DX: N13.1 Hydronephrosis with ureteral stricture, not elsewhere classified (principal); I10 Essential (primary) hypertension; Z88.0 Allergy status to penicillin
CPT/HCPCS: 36415; 74176; 76377; 80048; 80076; 83690; 85025; 96361; 96374; 96375; 99284; J2405; J2550; J3010; J7030

== ENCOUNTER 2023-07-17 06:50 | Day surgery (SDC) | payer BC, OTHER ==
[2023-07-16 13:42] LABS: Absolute Lymphocytes (CBC) 1.6 K/uL (0.7-4.9); Hematocrit 39.5 % (36.0-45.0); Lymphocytes % 29.7 % (15.3-44.8); MCV 86.1 fL (80-100); MPV 6.7 fL (7.6-11.3); Platelets 252 thou/uL (152-406); RBC Red Blood Cell Count 4.59 M/uL (3.86-4.86)
[2023-07-16 13:51] LABS: Protime INR 1.02
[2023-07-16 13:55] LABS: Potassium 4.1 mEq/L (3.5-5.1)
--- NOTE | 2023-07-16 15:08 | RAD REPORT ---
EXAM DESCRIPTION: Hugo Santos And Rula (2 Views)07/16/2023 1:46 pm CLINICAL HISTORY: Preop for cardiac catheterization. Hypertension COMPARISON: None FINDINGS: The lungs appear clear of acute infiltrate. The heart is mildly enlarged IMPRESSION: No acute abnormalities displayed
--- NOTE | 2023-07-16 16:24 | EKG ---
Test Date: 2023-07-16 Test Time: 14:17:52 Learning Administrator: WOODY MEASUREMENT RESULTS: Intervals: Rate: 69 AK: 176 QRSD: 82 QT: 412 QTc: 441 [place]: P: 54 AK: 176 QRS: -42 T: 80 INTERPRETIVE STATEMENTS: Normal sinus rhythm Left axis deviation Moderate voltage criteria for LVH, may be normal variant Nonspecific T wave abnormality Abnormal ECG No previous ECG available for comparison Electronically Signed On 07-16-23 16:23:43 BIOINFORMATICS ENGINEER by Leonidas Sultana
[2023-07-17] MEDS ORDERED: LIDOCAINE 1% 20 ML MDV ONE (06:55)
[2023-07-17] MEDS ORDERED: FENTANYL CITR 100 MCG/2 ML ONE (06:55)
[2023-07-17] MEDS ORDERED: HEPA 1000U/500MLS 2,000 UNIT/1,000 ML BAG IV ONE (06:55)
[2023-07-17] MEDS ORDERED: VERAPAMIL HCL 10 MG/4 ML VIAL IV ONE (06:55)
[2023-07-17] MEDS ORDERED: MIDAZOLAM HCL 2 MG/2 ML INJ ONE (06:56)
[2023-07-17] MEDS ORDERED: ATROPINE SULF 1 MG/10 ML SYR IV ONE (06:56)
[2023-07-17] MEDS ORDERED: TICAGRELOR 90 MG TABLET PO ONE (06:56)
[2023-07-17] MEDS ORDERED: NA CHLORIDE 0.9% 500 ML ONE (06:56)
[2023-07-17] MEDS ORDERED: HEPARIN 10,000 UNIT/10 ML VIAL IV ONE (06:56)
[2023-07-17] MEDS ORDERED: HEPARIN 5000 UNIT/ML 1 ML VIAL ONE (06:56)
[2023-07-17] MEDS ORDERED: CLOPIDOGREL 75 MG TABLET ONE (06:57)
[2023-07-17] MEDS ORDERED: ASPIRIN 325 MG TAB ONE (06:57)
[2023-07-17 10:37] VITALS: BP 146/71; O2SAT 95
--- NOTE | 2023-07-17 14:48 | OP ---
Date of Procedure: 07/17/2023 Surgeon: MARISA REYNOLDS Procedures Performed: 1.Selective coronary angiogram. 2.Left heart catheterization. 3.LV-gram. Indication: Severe systolic heart failure. Access: Right radial artery 6-Liberian closed with TR band. Complications: None. Bleeding: Less than 20 mL. Anesthesia: Total sedation time was 30 minutes. Description Of Procedure: After risks, benefits, alternatives were explained, patient agreed to proc edure and signed informed consent. Patient was brought into cardiac catheterization laboratory, prep ped and draped in the usual sterile fashion. Then I accessed right radial artery using pediatric vito ropuncture kit, placed 6-Liberian Slender sheath, took 5-Liberian [place] 4.0 catheter into the aortic root , engaged left main and the right coronary artery, took standard views and then I exchanged for angle d pigtail catheter across the aortic valve, measured the LVEDP and did LV-gram and pullback did not r ecord any gradient, removed the catheter and the sheath, placed TR band with good hemostasis. Findings: 1.Left main; large and normal. 2.LAD; large and normal. Normal diagonal branches. 3.Left circumflex; normal. 4.RCA; large and dominant and normal. 5.LVEDP is borderline elevated at 14 mmHg. 6.Low normal ejection fraction at 50% with normal wall motion. Conclusion: 1.Normal coronary arteries. 2.Recovered LV ejection fraction. 3.Slightly elevated LVEDP. Plan: Continue heart failure medications. SR/MODL Voice ID: [id number] Report ID: [id number]
== END 2023-07-17 10:44 | disposition home or self-care (01) ==
LOC: CCL 06:50
PROVIDERS: ATTEND Internal Medicine
DX: I11.0 Hypertensive heart disease with heart failure (principal); I50.22 Chronic systolic (congestive) heart failure; I34.0 Nonrheumatic mitral (valve) insufficiency; Z79.899 Other long term (current) drug therapy; Z88.0 Allergy status to penicillin
CPT/HCPCS: 93005; 85025; 80048; 36415; 83721; 85610; 85730; 71046; 93458; 76937; C1893; Q9966; J1644; J2001; J2250; J3010; J7040; 99152; 99153; J0461